=== PATIENT | female | born 1960 | race Two or more races ===

== ENCOUNTER 2017-04-28 05:08 | Inpatient (IN) | payer MEDICAID ==
[~2017-04-28] VITALS: Ht 160 cm; Wt 68.6 kg
[2017-04-28] MEDS ORDERED: SODIUM CHLORIDE 0.9% 500 ML IV ONE ×2 (05:35→05:45)
[2017-04-28] MEDS ORDERED: SODIUM CHLORIDE 0.9% 1,000 ML IV ONE ×4 (06:45→08:14)
[2017-04-28 07:17] LABS: CONDITION AutoValidated; DEFINITIVE SEE PRINTOUT; Hematocrit 36.2 % (36.0-46.0); Hemoglobin 11.6 g/dL (12.2-16.2); Mean Corpuscular Hemoglobin 24.4 pg (28.0-32.0); Mean Corpuscular Hgb Conc. 31.9 g/dL (32.0-36.0); Mean Corpuscular Volume 76.3 fL (80.0-100.0); Mean Platelet Volume 7.4 fL (7.4-10.4); Platelet Count (auto) 463 10^3/uL (140-450); SUSPECT SEE PRINTOUT
[2017-04-28 07:30] LABS: Partial Thromboplastin Time 31.3 sec (22.64-33.71)
[2017-04-28] MEDS ORDERED: PIPERACILLIN-TAZOB 3.375GM 100 ML IV ONE (07:30)
[2017-04-28 07:37] LABS: INR 2.27 (0.9-1.15); Prothrombin Time 24.9 sec (9.37-12.3)
[2017-04-28 07:38] LABS: Albumin 2.3 g/dL (3.4-5.0); BUN/Creatinine Ratio 11.2; Calcium 8.3 mg/dL (8.5-10.1); Metamyelocytes % 0; Myelocytes % 0; Promyelocytes % 0; Reactive Lymphocytes 0
[2017-04-28 07:41] LABS: Bilirubin, Total 0.3 mg/dL (0.2-1.0); Lactic Acid w/Reflex 4.7 mmol/L (0.4-2.0); Total Protein 9.5 g/dL (6.4-8.2)
[2017-04-28 07:43] LABS: Potassium 2.7 mmol/L (3.5-5.1)
[2017-04-28 07:52] LABS: Urine Bilirubin Negative (Negative); Urine Blood Negative /uL (Negative); Urine Color Yellow (Yellow); Urine Glucose Normal (Normal); Urine Ketone Negative (Negative); Urine Mucus FEW (None Seen); Urine Nitrite Negative (Negative); Urine RBC 1 /hpf (0 - 4); Urine Squamous Epithelial Cell FEW /hpf (<5); Urine Urobilinogen Normal (Negative); Urine pH 5.5 (5.0-8.0)
[2017-04-28 07:57] LABS: Anisocytosis Slight; Hypochromia Slight; Platelet Estimate Increased
[2017-04-28 08:08] LABS: REFLEX LACTIC ACID YES OR NO YES
[2017-04-28] MEDS ORDERED: metroNIDAZOLE 500MG/100ML 100 ML IV ONE (08:15)
[2017-04-28] MEDS ORDERED: AZITHROMYCIN 500MG/D5W 250ML 250 ML IV ONE (09:45)
[2017-04-28] MEDS: SODIUM CHLORIDE 0.9% 1,000 ML IV SCH ×2 (10:51→20:36)
[2017-04-28] MEDS ORDERED: ONDANSETRON HCL 4 MG/2 ML VIAL IV PRN (11:00)
[2017-04-28] MEDS ORDERED: DEXTROSE (50%) 50ML SYRG IV PRN (11:00)
[2017-04-28] MEDS ORDERED: MORPHINE SULF INJ 2 MG/ML SYRINGE 1ML IV PRN (11:00)
[2017-04-28] MEDS ORDERED: NITROGLYCERIN 0.4 MG SL TAB SL PRN (11:00)
[2017-04-28] MEDS ORDERED: cefTRIAXone 1GM/50ML D5W 50 ML IV ONE (11:00)
[2017-04-28] MEDS ORDERED: DOCUSATE SOD 100 MG CAP PO PRN (11:00)
[2017-04-28] MEDS ORDERED: VANCOMYCIN PER PHARMACY 0 MG IV SCH (11:00)
[2017-04-28] MEDS ORDERED: ACETAMINOPHEN 325 MG TAB PO PRN (11:00)
[2017-04-28] MEDS: FAMOTIDINE 20 MG TAB PO SCH ×2 (11:30→22:45)
[2017-04-28] MEDS: InsuLIN REG 1unit/0.01ml Soln (100units/ml) SC SCH ×3 (11:30→22:44)
[2017-04-28] MEDS: MULTIPLE VITAMIN TAB PO SCH (11:30)
[2017-04-28] MEDS: ACCU-CHEK COMFORT CURVE STRIP VI SCH ×3 (11:30→22:45)
[2017-04-28] MEDS ORDERED: POTASSIUM CHLORIDE 40 MEQ, LIDOCAINE 1% (LOCAL ANESTH.) 4 ML in SODIUM CHL 0.9% 250 ML IV ONE (11:30)
[2017-04-28] MEDS: VANCOMYCIN 1GM/250ML D5W 250 ML IV SCH (12:00)
[2017-04-28] MEDS: HYDROcodone-ACET 5/325MG TAB PO PRN (16:07)
[2017-04-28 16:50] VITALS: BP 115/63
[2017-04-28 20:00] VITALS: BP 94/54
[2017-04-28] MEDS ORDERED: TIOTCAP INH (20:28)
[2017-04-28] MEDS ORDERED: WARF2.5T39 PO (20:28)
[2017-04-28] MEDS ORDERED: PROM25TA5 PO (20:29)
[2017-04-28] MEDS ORDERED: OXY20CRT PO (20:32)
[2017-04-28] MEDS ORDERED: HYDR-531 PO (20:34)
[2017-04-28] MEDS ORDERED: LIDO5DIS21 TOP (20:34)
[2017-04-28] MEDS ORDERED: FAMO-12 PO (20:35)
[2017-04-28] MEDS ORDERED: FLUT250M2 INH (20:35)
[2017-04-28 20:37] LABS: BUN/Creatinine Ratio 15.4; Calcium 7.2 mg/dL (8.5-10.1); Potassium 3.2 mmol/L (3.5-5.1)
[2017-04-28 20:42] LABS: B-Type Natriuretic Peptide 847.48 pg/mL (0-100)
[2017-04-28 21:02] LABS: Temperature: 23.1 C (20.0-25.0)
[2017-04-28 21:04] LABS: REFLEX LACTIC ACID YES OR NO YES
[2017-04-29] VITALS: BP 115/67
[2017-04-29] MEDS: HYDROcodone-ACET 5/325MG TAB PO PRN ×3 (01:28→22:26)
[2017-04-29] MEDS: SODIUM CHLORIDE 0.9% 1,000 ML IV SCH (03:33)
[2017-04-29 04:00] VITALS: BP 98/63
[2017-04-29] MEDS: InsuLIN REG 1unit/0.01ml Soln (100units/ml) SC SCH ×4 (05:20→22:00)
[2017-04-29] MEDS: ACCU-CHEK COMFORT CURVE STRIP VI SCH ×4 (05:20→22:26)
[2017-04-29 05:49] LABS: CONDITION Y; DEFINITIVE SEE PRINTOUT; Hematocrit 29.9 % (36.0-46.0); Hemoglobin 9.7 g/dL (12.2-16.2); Mean Corpuscular Hemoglobin 24.5 pg (28.0-32.0); Mean Corpuscular Hgb Conc. 32.5 g/dL (32.0-36.0); Mean Corpuscular Volume 75.4 fL (80.0-100.0); Mean Platelet Volume 7.6 fL (7.4-10.4); Platelet Count (auto) 412 10^3/uL (140-450); SUSPECT SEE PRINTOUT
[2017-04-29 06:08] LABS: Red Cell Distribution Width 20.7 % (11.6-16.0)
[2017-04-29 06:11] LABS: Albumin 1.7 g/dL (3.4-5.0); BUN/Creatinine Ratio 18.5; Calcium 7.2 mg/dL (8.5-10.1); Myelocytes % 0; Potassium 3.5 mmol/L (3.5-5.1); Promyelocytes % 0; Reactive Lymphocytes 0
[2017-04-29 06:16] LABS: Bilirubin, Total 0.4 mg/dL (0.2-1.0); Total Protein 7.4 g/dL (6.4-8.2)
[2017-04-29 06:37] LABS: Anisocytosis Slight; Hypochromia Slight; Metamyelocytes % 9; Platelet Estimate Adequate
[2017-04-29 08:00] VITALS: BP 108/54
[2017-04-29] MEDS: cefTRIAXone 1GM/50ML D5W 50 ML IV SCH (08:57)
[2017-04-29] MEDS: FAMOTIDINE 20 MG TAB PO SCH ×2 (09:30→22:25)
[2017-04-29] MEDS: MULTIPLE VITAMIN TAB PO SCH (09:30)
[2017-04-29 12:00] VITALS: BP 106/63
[2017-04-29] MEDS: VANCOMYCIN 1GM/250ML D5W 250 ML IV SCH (12:18)
[2017-04-29] MEDS: D5W/SOD CHLO 0.9% 1,000 ML IV SCH ×2 (12:54→22:45)
[2017-04-29 15:49] VITALS: BP 121/72
[2017-04-29 20:00] VITALS: BP 125/90
[2017-04-29] MEDS: TEMAZEPAM 15 MG CAP PO PRN (22:25)
[2017-04-30] MEDS: InsuLIN REG 1unit/0.01ml Soln (100units/ml) SC SCH ×4 (06:26→22:00)
[2017-04-30 06:30] LABS: CONDITION Y; DEFINITIVE SEE PRINTOUT; Hematocrit 26.6 % (36.0-46.0); Hemoglobin 8.5 g/dL (12.2-16.2); Mean Corpuscular Hemoglobin 24.5 pg (28.0-32.0); Mean Corpuscular Volume 76.4 fL (80.0-100.0); Mean Platelet Volume 7.6 fL (7.4-10.4); Platelet Count (auto) 343 10^3/uL (140-450); SUSPECT SEE PRINTOUT; White Blood Cell 21.8 10^3/uL (4.4-10.8)
[2017-04-30 06:44] LABS: Albumin 1.4 g/dL (3.4-5.0); Potassium 3.6 mmol/L (3.5-5.1)
[2017-04-30 06:47] LABS: Bilirubin, Total 0.2 mg/dL (0.2-1.0); Red Cell Distribution Width 20.6 % (11.6-16.0)
[2017-04-30 06:48] LABS: Metamyelocytes % 0; Myelocytes % 0; Promyelocytes % 0; Reactive Lymphocytes 0
[2017-04-30 06:51] LABS: BUN/Creatinine Ratio 23.3
[2017-04-30 06:53] LABS: Calcium 5.6 mg/dL (8.5-10.1)
[2017-04-30 06:59] LABS: Total Protein 6.2 g/dL (6.4-8.2)
[2017-04-30] MEDS: ACCU-CHEK COMFORT CURVE STRIP VI SCH ×4 (07:00→21:48)
[2017-04-30 08:00] VITALS: BP 127/87
[2017-04-30] MEDS: D5W/SOD CHLO 0.9% 1,000 ML IV SCH ×2 (08:45→12:21)
[2017-04-30 09:16] LABS: Anisocytosis Slight; Hypochromia Slight; Platelet Estimate Adequate
[2017-04-30 09:23] LABS: White Blood Cell 35.6 10^3/uL (4.4-10.8)
[2017-04-30] MEDS: FAMOTIDINE 20 MG TAB PO SCH ×2 (10:58→22:03)
[2017-04-30] MEDS: MULTIPLE VITAMIN TAB PO SCH (11:00)
[2017-04-30] MEDS: cefTRIAXone 1GM/50ML D5W 50 ML IV SCH (11:00)
[2017-04-30] MEDS: MAGNESIUM SULFATE 1GM/100ML 100 ML IV SCH (11:00)
[2017-04-30 12:00] VITALS: BP 137/97
[2017-04-30] MEDS: VANCOMYCIN 1GM/250ML D5W 250 ML IV SCH (12:21)
[2017-04-30] MEDS ORDERED: MAGNESIUM SULFATE 1GM/100ML 100 ML IV ONE (14:01)
[2017-04-30 16:00] VITALS: BP 140/94
[2017-04-30 19:46] VITALS: BP 129/76
[2017-05-01] VITALS: BP 138/72
[2017-05-01 04:00] VITALS: BP 134/83
[2017-05-01] MEDS: D5W/SOD CHLO 0.9% 1,000 ML IV SCH ×2 (05:03→20:00)
[2017-05-01 05:27] LABS: Basophils # (auto) 0.1 uL; Basophils % (auto) 0.5 % (0.0-2.0); CONDITION Y; DEFINITIVE SEE PRINTOUT; Eosinophils # (auto) 0.2 uL; Eosinophils % (auto) 1.8 % (0.0-7.0); Hematocrit 29.4 % (36.0-46.0); Hemoglobin 9.3 g/dL (12.2-16.2); Lymphocytes # (auto) 1.7 uL; Lymphocytes % (auto) 12.8 % (10.0-50.0); Mean Corpuscular Hemoglobin 23.9 pg (28.0-32.0); Mean Corpuscular Hgb Conc. 31.6 g/dL (32.0-36.0); Mean Corpuscular Volume 75.6 fL (80.0-100.0); Mean Platelet Volume 7.7 fL (7.4-10.4); Monocytes # (auto) 0.3 uL; Monocytes % (auto) 2.2 % (0.0-12.0); Neutrophils # (auto) 10.7 uL; Neutrophils % (auto) 82.7 % (37.0-80.0); Platelet Count (auto) 372 10^3/uL (140-450)
[2017-05-01] MEDS: ACCU-CHEK COMFORT CURVE STRIP VI SCH ×4 (05:27→20:55)
[2017-05-01 05:42] LABS: Albumin 1.7 g/dL (3.4-5.0); BUN/Creatinine Ratio 17.3; Bilirubin, Total 0.2 mg/dL (0.2-1.0); Calcium 7.6 mg/dL (8.5-10.1); Magnesium 1.7 mg/dL (1.6-2.6); Total Protein 7.4 g/dL (6.4-8.2)
[2017-05-01 05:44] LABS: Potassium 2.9 mmol/L (3.5-5.1)
[2017-05-01 05:54] LABS: Anisocytosis Slight; Hypochromia Slight; Platelet Estimate Adequate
[2017-05-01] MEDS: InsuLIN REG 1unit/0.01ml Soln (100units/ml) SC SCH ×4 (06:04→21:52)
[2017-05-01] MEDS: POTASSIUM CHL 20MEQ/100ML 100 ML IV SCH ×4 (06:23→14:30)
[2017-05-01] MEDS: cefTRIAXone 1GM/50ML D5W 50 ML IV SCH (09:22)
[2017-05-01] MEDS: FAMOTIDINE 20 MG TAB PO SCH ×2 (10:46→20:49)
[2017-05-01] MEDS: AZITHROMYCIN 500MG/D5W 250ML 250 ML IV SCH (10:46)
[2017-05-01 12:00] VITALS: BP 147/93
[2017-05-01] MEDS: MULTIPLE VITAMIN TAB PO SCH (15:00)
[2017-05-01 16:00] VITALS: BP 146/92
[2017-05-01 20:00] VITALS: BP 151/97
[2017-05-01] MEDS: TEMAZEPAM 15 MG CAP PO PRN (20:49)
[2017-05-01] MEDS: HYDROcodone-ACET 5/325MG TAB PO PRN (20:51)
[2017-05-01 23:47] VITALS: BP 149/94
[2017-05-02] MEDS: D5W/SOD CHLO 0.9% 1,000 ML IV SCH ×3 (00:45→19:00)
[2017-05-02 03:49] VITALS: BP 136/82
[2017-05-02] MEDS: InsuLIN REG 1unit/0.01ml Soln (100units/ml) SC SCH ×4 (05:37→21:55)
[2017-05-02] MEDS: ACCU-CHEK COMFORT CURVE STRIP VI SCH ×4 (05:38→21:51)
[2017-05-02 06:20] LABS: Basophils # (auto) 0 uL; Basophils % (auto) 0.2 % (0.0-2.0); CONDITION Y; DEFINITIVE SEE PRINTOUT; Eosinophils # (auto) 0.3 uL; Eosinophils % (auto) 2.6 % (0.0-7.0); Hematocrit 32.1 % (36.0-46.0); Hemoglobin 10.4 g/dL (12.2-16.2); Lymphocytes # (auto) 1.6 uL; Lymphocytes % (auto) 15.4 % (10.0-50.0); Mean Corpuscular Hemoglobin 24.3 pg (28.0-32.0); Mean Corpuscular Hgb Conc. 32.3 g/dL (32.0-36.0); Mean Corpuscular Volume 75.2 fL (80.0-100.0); Mean Platelet Volume 7.3 fL (7.4-10.4); Monocytes # (auto) 0.2 uL; Monocytes % (auto) 1.5 % (0.0-12.0); Neutrophils # (auto) 8.6 uL; Neutrophils % (auto) 80.3 % (37.0-80.0); Platelet Count (auto) 306 10^3/uL (140-450); SUSPECT SEE PRINTOUT; White Blood Cell 10.7 10^3/uL (4.4-10.8)
[2017-05-02 06:36] LABS: Albumin 1.8 g/dL (3.4-5.0); Calcium 7.7 mg/dL (8.5-10.1); Potassium 3.6 mmol/L (3.5-5.1)
[2017-05-02 06:43] LABS: BUN/Creatinine Ratio 11.3; Bilirubin, Total 0.2 mg/dL (0.2-1.0); Total Protein 8.1 g/dL (6.4-8.2)
[2017-05-02 06:48] LABS: Red Cell Distribution Width 20.6 % (11.6-16.0)
[2017-05-02 06:49] LABS: Anisocytosis Slight; Hypochromia Slight; Platelet Estimate Adequate
[2017-05-02 08:00] VITALS: BP 140/89
[2017-05-02] MEDS: cefTRIAXone 1GM/50ML D5W 50 ML IV SCH (09:00)
[2017-05-02] MEDS: AZITHROMYCIN 500MG/D5W 250ML 250 ML IV SCH (10:30)
[2017-05-02] MEDS: FAMOTIDINE 20 MG TAB PO SCH ×2 (10:30→21:51)
[2017-05-02] MEDS: MULTIPLE VITAMIN TAB PO SCH (10:30)
[2017-05-02 11:51] VITALS: BP 130/89
[2017-05-02] MEDS: HYDROcodone-ACET 5/325MG TAB PO PRN (15:26)
[2017-05-02 16:00] VITALS: BP 141/84
[2017-05-02 22:00] VITALS: BP 133/75
[2017-05-02] MEDS: MORPHINE SULF INJ 2 MG/ML SYRINGE 1ML IV PRN (22:43)
[2017-05-03 05:00] VITALS: BP 122/86
[2017-05-03] MEDS: MORPHINE SULF INJ 2 MG/ML SYRINGE 1ML IV PRN (06:01)
[2017-05-03] MEDS: InsuLIN REG 1unit/0.01ml Soln (100units/ml) SC SCH ×4 (06:36→22:01)
[2017-05-03] MEDS: ACCU-CHEK COMFORT CURVE STRIP VI SCH ×4 (06:36→21:43)
[2017-05-03] MEDS: D5W/SOD CHLO 0.9% 1,000 ML IV SCH ×2 (06:45→16:45)
[2017-05-03] MEDS: cefTRIAXone 1GM/50ML D5W 50 ML IV SCH (08:27)
[2017-05-03] MEDS: MULTIPLE VITAMIN TAB PO SCH (08:27)
[2017-05-03] MEDS: FAMOTIDINE 20 MG TAB PO SCH ×2 (08:27→21:43)
[2017-05-03 09:00] VITALS: BP 113/71
[2017-05-03] MEDS: AZITHROMYCIN 500MG/D5W 250ML 250 ML IV SCH (09:53)
[2017-05-03 13:00] VITALS: BP 128/75
[2017-05-03 17:00] VITALS: BP 112/76
[2017-05-03 21:14] VITALS: BP 114/71
[2017-05-03] MEDS: HYDROcodone-ACET 5/325MG TAB PO PRN (22:02)
[2017-05-04] MEDS: D5W/SOD CHLO 0.9% 1,000 ML IV SCH ×3 (02:45→23:37)
[2017-05-04 05:02] VITALS: BP 107/74
[2017-05-04] MEDS: HYDROcodone-ACET 5/325MG TAB PO PRN ×2 (05:57→20:45)
[2017-05-04] MEDS: ACCU-CHEK COMFORT CURVE STRIP VI SCH ×4 (05:57→20:45)
[2017-05-04] MEDS: InsuLIN REG 1unit/0.01ml Soln (100units/ml) SC SCH ×4 (06:44→22:00)
[2017-05-04 07:19] LABS: Basophils # (auto) 0 uL; Basophils % (auto) 0.5 % (0.0-2.0); CONDITION Y; DEFINITIVE SEE PRINTOUT; Eosinophils # (auto) 0.6 uL; Eosinophils % (auto) 7.7 % (0.0-7.0); Hematocrit 32.6 % (36.0-46.0); Hemoglobin 10.6 g/dL (12.2-16.2); Lymphocytes # (auto) 1.7 uL; Lymphocytes % (auto) 20.2 % (10.0-50.0); Mean Corpuscular Hemoglobin 24.3 pg (28.0-32.0); Mean Corpuscular Hgb Conc. 32.5 g/dL (32.0-36.0); Mean Corpuscular Volume 74.7 fL (80.0-100.0); Mean Platelet Volume 7.2 fL (7.4-10.4); Monocytes # (auto) 1.2 uL; Monocytes % (auto) 14.2 % (0.0-12.0); Neutrophils # (auto) 4.9 uL; Neutrophils % (auto) 57.4 % (37.0-80.0); Platelet Count (auto) 389 10^3/uL (140-450); White Blood Cell 8.5 10^3/uL (4.4-10.8)
[2017-05-04 07:23] LABS: Red Cell Distribution Width 20.2 % (11.6-16.0)
[2017-05-04 07:27] LABS: Albumin 2.1 g/dL (3.4-5.0); Calcium 8.3 mg/dL (8.5-10.1); Potassium 3.8 mmol/L (3.5-5.1)
[2017-05-04 07:30] LABS: Bilirubin, Total 0.2 mg/dL (0.2-1.0); Total Protein 9.5 g/dL (6.4-8.2)
[2017-05-04] MEDS: cefTRIAXone 1GM/50ML D5W 50 ML IV SCH (08:18)
[2017-05-04] MEDS: AZITHROMYCIN 500MG/D5W 250ML 250 ML IV SCH (10:04)
[2017-05-04] MEDS: FAMOTIDINE 20 MG TAB PO SCH ×2 (10:04→20:44)
[2017-05-04] MEDS: MULTIPLE VITAMIN TAB PO SCH (10:04)
[2017-05-04 10:09] VITALS: BP 131/78
[2017-05-04 11:19] LABS: Anisocytosis Slight
[2017-05-04 11:20] LABS: Hypochromia Slight; Microcytosis Moderate; Platelet Estimate Adequate
[2017-05-04 12:23] VITALS: BP 113/74
[2017-05-04] MEDS: PROMETHAZINE W/CODEINE 5 ML ORAL SYRUP PO PRN ×2 (12:39→20:44)
[2017-05-04 21:45] VITALS: BP 133/80
[2017-05-05 04:44] VITALS: BP 124/78
[2017-05-05] MEDS: ACCU-CHEK COMFORT CURVE STRIP VI SCH ×2 (06:20→11:32)
[2017-05-05] MEDS: HYDROcodone-ACET 5/325MG TAB PO PRN (06:20)
[2017-05-05] MEDS: InsuLIN REG 1unit/0.01ml Soln (100units/ml) SC SCH ×2 (07:00→11:32)
[2017-05-05] MEDS: cefTRIAXone 1GM/50ML D5W 50 ML IV SCH (08:54)
[2017-05-05] MEDS: D5W/SOD CHLO 0.9% 1,000 ML IV SCH (08:54)
[2017-05-05 09:03] VITALS: BP 105/67
[2017-05-05] MEDS: MULTIPLE VITAMIN TAB PO SCH (10:12)
[2017-05-05] MEDS: AZITHROMYCIN 500MG/D5W 250ML 250 ML IV SCH (10:12)
[2017-05-05] MEDS: FAMOTIDINE 20 MG TAB PO SCH (10:12)
[2017-05-05 10:57] VITALS: BP 86/64
[2017-05-05] MEDS: PROMETHAZINE W/CODEINE 5 ML ORAL SYRUP PO PRN (12:32)
== END 2017-05-05 14:20 | disposition home or self-care (01) | DRG 720 ==
LOC: ER 05:08 → EDBD 05:08 → TELE 05:09 → DOU IN ICU 16:54 → TELE-EAST 05-02 19:57 → EAST 05-03 16:30
PROVIDERS: ADMIT Internal Medicine; ATTEND Internal Medicine
DX: A41.9 Sepsis, unspecified organism (principal); J69.0 Pneumonitis due to inhalation of food and vomit; E43 Unspecified severe protein-calorie malnutrition; G92 Toxic encephalopathy; J13 Pneumonia due to Streptococcus pneumoniae; D68.9 Coagulation defect, unspecified; E11.21 Type 2 diabetes mellitus with diabetic nephropathy; D63.8 Anemia in other chronic diseases classified elsewhere; E83.51 Hypocalcemia; E87.6 Hypokalemia; F15.10 Other stimulant abuse, uncomplicated; E86.0 Dehydration; J44.9 Chronic obstructive pulmonary disease, unspecified; N18.3 Chronic kidney disease, stage 3 (moderate); E78.5 Hyperlipidemia, unspecified; E11.22 Type 2 diabetes mellitus with diabetic chronic kidney disease; J44.0 Chronic obstructive pulmonary disease with (acute) lower respiratory infection; Z82.49 Family history of ischemic heart disease and other diseases of the circulatory system; Z83.3 Family history of diabetes mellitus; Z90.49 Acquired absence of other specified parts of digestive tract; Z90.12 Acquired absence of left breast and nipple; Z88.8 Allergy status to other drugs, medicaments and biological substances; Z82.61 Family history of arthritis; Z71.9 Counseling, unspecified; Z68.26 Body mass index [BMI] 26.0-26.9, adult
CPT/HCPCS: 36415; 36556; 51702; 70450; 71010; 71020; 71250; 74176; 80048; 80053; 80307; 81001; 82962; 83036; 83540; 83605; 83735; 83880; 84443; 84484; 85007; 85025; 85027; 85610; 85730; 87040; 87070; 87077; 87081; 87186; 87205; 87493; 93005; 93306; 96361; 96365; 96366; 96368; 96375; 99291; J0696; J1815; J2001; J2543; J3480; J3490; J7042

== ENCOUNTER 2017-12-07 15:52 | Emergency (ER) | payer MEDICAID ==
[~2017-12-07] VITALS: Ht 160 cm; Wt 54.4 kg
[~2017-12-07 15:52] MED LIST: FAMO-12 PO; FLUT250M2 INH; HYDR-531 PO; LIDO5DIS21 TOP; OXY20CRT PO; PROM25TA5 PO; TIOTCAP INH; WARF2.5T39 PO
[2017-12-07 15:56] VITALS: BP 147/84
[2017-12-07 17:08] LABS: Basophils # (auto) 0.1 uL; Eosinophils # (auto) 0.1 uL; Hemoglobin 11.9 g/dL (12.2-16.2); White Blood Cell 10.2 10^3/uL (4.4-10.8)
[2017-12-07 17:09] LABS: Basophils % (auto) 0.8 % (0.0-2.0); Eosinophils % (auto) 0.7 % (0.0-7.0); Lymphocytes # (auto) 2.1 uL; Lymphocytes % (auto) 20.3 % (10.0-50.0); Mean Corpuscular Hgb Conc. 32.2 g/dL (32.0-36.0); Mean Corpuscular Volume 77.6 fL (80.0-100.0); Monocytes # (auto) 1.6 uL; Monocytes % (auto) 15.3 % (0.0-12.0); Neutrophils # (auto) 6.4 uL; Neutrophils % (auto) 62.9 % (37.0-80.0); Nucleated Red Blood Cells % 0.1 %; Platelet Count (auto) 489 10^3/uL (140-450); Red Blood Cells 4.77 10^6/uL (4.0-5.20)
[2017-12-07 17:14] LABS: Alanine Aminotransferase 10 U/L (13-56); Albumin 2.6 g/dL (3.4-5.0); Alkaline Phosphatase 87 U/L (45-117); Anion Gap 8 (5-15); Aspartate Aminotransferase 16 U/L (15-37); BUN/Creatinine Ratio 13.3; Bilirubin, Total 0.3 mg/dL (0.2-1.0); Blood Urea Nitrogen 15 mg/dL (7-18); Calcium 7.8 mg/dL (8.5-10.1); Carbon Dioxide 21 mmol/L (21-32); Chloride 101 mmol/L (98-107); GFR African American 64 mL/min; GFR Non-African American 53 mL/min; Glucose 86 mg/dL (74-106); Magnesium 2.1 mg/dL (1.6-2.6); Potassium 3.5 mmol/L (3.5-5.1); Sodium 130 mmol/L (136-145); Total Protein 11.2 g/dL (6.4-8.2)
[2017-12-07 17:15] LABS: Red Cell Distribution Width 20.7 % (11.8-14.3)
[2017-12-09] MEDS ORDERED: WARF5TAB71 PO (05:07)
[2017-12-12] MEDS ORDERED: SACC250C PO (13:07)
[2017-12-12] MEDS ORDERED: WARF5TAB71 PO (13:07)
[2017-12-12] MEDS ORDERED: LEVO750T2 PO (13:07)
== END 2017-12-08 02:15 | disposition left against medical advice (07) ==
LOC: ER 15:52
DX: R06.02 Shortness of breath (principal); Z53.21 Procedure and treatment not carried out due to patient leaving prior to being seen by health care provider
CPT/HCPCS: 36415; 71046; 80053; 83605; 83735; 84484; 85025; 87040; 93005

== ENCOUNTER 2017-12-08 13:01 | Inpatient (IN) | payer MEDICAID ==
[~2017-12-08] VITALS: Ht 160 cm; Wt 69.2 kg
[2017-12-08 05:00] VITALS: BP 118/56
[2017-12-08 13:43] LABS: Basophils # (auto) 0.1 uL; Monocytes # (auto) 1.9 uL; Monocytes % (auto) 10.1 % (0.0-12.0); White Blood Cell 18.4 10^3/uL (4.4-10.8)
[2017-12-08 13:46] LABS: Basophils % (auto) 0.5 % (0.0-2.0); Eosinophils # (auto) 0.1 uL; Eosinophils % (auto) 0.3 % (0.0-7.0); Hematocrit 38.6 % (36.0-46.0); Hemoglobin 12.5 g/dL (12.2-16.2); Lymphocytes # (auto) 1.2 uL; Lymphocytes % (auto) 6.4 % (10.0-50.0); Mean Corpuscular Hgb Conc. 32.4 g/dL (32.0-36.0); Mean Corpuscular Volume 77.2 fL (80.0-100.0); Neutrophils # (auto) 15.2 uL; Neutrophils % (auto) 82.7 % (37.0-80.0); Platelet Count (auto) 479 10^3/uL (140-450); Red Blood Cells 4.99 10^6/uL (4.0-5.20)
[2017-12-08 13:51] LABS: Red Cell Distribution Width 20.2 % (11.8-14.3)
[2017-12-08 14:10] LABS: Alanine Aminotransferase 13 U/L (13-56); Albumin 2.5 g/dL (3.4-5.0); Alkaline Phosphatase 86 U/L (45-117); Anion Gap 7 (5-15); Aspartate Aminotransferase 14 U/L (15-37); BUN/Creatinine Ratio 12.8; Bilirubin, Total 0.5 mg/dL (0.2-1.0); Blood Urea Nitrogen 15 mg/dL (7-18); Carbon Dioxide 21 mmol/L (21-32); Chloride 101 mmol/L (98-107); GFR African American 61 mL/min; GFR Non-African American 50 mL/min; Glucose 109 mg/dL (74-106); Potassium 3.8 mmol/L (3.5-5.1); Sodium 129 mmol/L (136-145); Total Protein 11.3 g/dL (6.4-8.2)
[2017-12-08] MEDS ORDERED: AZITHROMYCIN 500MG/ 250ML 250 ML IV ONE (14:30)
[2017-12-08] MEDS ORDERED: ONDANSETRON HCL 4 MG/2 ML VIAL IV PRN (14:30)
[2017-12-08] MEDS ORDERED: MORPHINE SULF INJ 2 MG/ML SYRINGE 1ML IV PRN (14:30)
[2017-12-08] MEDS ORDERED: MORPHINE SULFATE 10 MG/ML INJ 1ML SDV IV PRN (14:30)
[2017-12-08] MEDS ORDERED: NITROGLYCERIN 0.4 MG SL TAB SL PRN (14:30)
[2017-12-08] MEDS ORDERED: cefTRIAXone 1GM/10ml IVPUSH 10 ML IV ONE (14:30)
[2017-12-08] MEDS ORDERED: cloNIDine HCL 0.1 MG TAB PO PRN (14:45)
[2017-12-08] MEDS ORDERED: SODIUM CHLORIDE 0.9% 1,000 ML IV ONE (15:00)
[2017-12-08 15:38] LABS: INR 1.05 (0.9-1.15); Partial Thromboplastin Time 29.9 sec (22.64-33.71); Prothrombin Time 11.5 sec (9.37-12.3)
[2017-12-08 15:48] VITALS: BP 121/75
[2017-12-08] MEDS ORDERED: WARFARIN SODIUM 10 MG TAB PO ONE (17:00)
[2017-12-08] MEDS ORDERED: WARFARIN SODIUM 5 MG TAB PO ONE (17:15)
[2017-12-08] MEDS: BOOST PLUS 8 ounce PO SCH (18:17)
[2017-12-08] MEDS: ALBUTEROL SULF 2.5 MG/0.5ML(0.5%) NEB SOLN NEB SCH ×2 (18:30→22:15)
[2017-12-08] MEDS: IPRATROPIUM BROM 0.5 MG/2.5ML INH SOL NEB SCH ×2 (18:30→22:15)
[2017-12-08 19:47] LABS: Lactic Acid w/Reflex 2.2 mmol/L (0.4-2.0)
[2017-12-08] MEDS: HYDROcodone-ACET 5/325MG TAB PO PRN (20:03)
[2017-12-08] MEDS: SODIUM CHLOR 0.9% PF (SALINE LOCK) 10ML VIAL IV SCH (22:10)
[2017-12-08] MEDS: FAMOTIDINE 20 MG TAB PO SCH (22:10)
[2017-12-09] MEDS: ALBUTEROL SULF 2.5 MG/0.5ML(0.5%) NEB SOLN NEB SCH ×6 (02:20→22:22)
[2017-12-09] MEDS: IPRATROPIUM BROM 0.5 MG/2.5ML INH SOL NEB SCH ×6 (02:20→22:22)
[2017-12-09 05:00] VITALS: BP 118/56
[2017-12-09] MEDS ORDERED: WARF5TAB71 PO (05:07)
[2017-12-09 06:27] LABS: Eosinophils # (auto) 0.1 uL; Neutrophils # (auto) 13.8 uL; Nucleated Red Blood Cells % 0.1 %
[2017-12-09 06:30] LABS: Basophils # (auto) 0.1 uL; Basophils % (auto) 0.3 % (0.0-2.0); Eosinophils % (auto) 0.5 % (0.0-7.0); Hematocrit 34.2 % (36.0-46.0); Hemoglobin 11.1 g/dL (12.2-16.2); Lymphocytes # (auto) 2.5 uL; Lymphocytes % (auto) 13.9 % (10.0-50.0); Mean Corpuscular Hemoglobin 25.1 pg (28.0-32.0); Mean Corpuscular Hgb Conc. 32.3 g/dL (32.0-36.0); Mean Corpuscular Volume 77.6 fL (80.0-100.0); Monocytes # (auto) 1.8 uL; Monocytes % (auto) 9.7 % (0.0-12.0); Neutrophils % (auto) 75.6 % (37.0-80.0); Platelet Count (auto) 429 10^3/uL (140-450); Red Blood Cells 4.41 10^6/uL (4.0-5.20); White Blood Cell 18.2 10^3/uL (4.4-10.8)
[2017-12-09] MEDS: DOCUSATE SOD 100 MG CAP PO PRN ×2 (06:31→22:58)
[2017-12-09] MEDS: SODIUM CHLOR 0.9% PF (SALINE LOCK) 10ML VIAL IV SCH ×3 (06:31→22:57)
[2017-12-09] MEDS: HYDROcodone-ACET 5/325MG TAB PO PRN ×3 (06:31→22:58)
[2017-12-09 06:40] LABS: INR 1.21 (0.9-1.15); Prothrombin Time 13.2 sec (9.37-12.3)
[2017-12-09 07:08] LABS: Red Cell Distribution Width 20.3 % (11.8-14.3)
[2017-12-09 07:09] LABS: Albumin 2.1 g/dL (3.4-5.0); BUN/Creatinine Ratio 13.4; Bilirubin, Total 0.5 mg/dL (0.2-1.0); Calcium 7.6 mg/dL (8.5-10.1); Potassium 3.5 mmol/L (3.5-5.1); Total Protein 9.6 g/dL (6.4-8.2)
[2017-12-09 08:00] VITALS: BP 112/59
[2017-12-09] MEDS: BOOST PLUS 8 ounce PO SCH ×3 (08:11→17:21)
[2017-12-09 08:35] LABS: INR 1.24 (0.9-1.15); Partial Thromboplastin Time 34.6 sec (22.64-33.71); Prothrombin Time 13.5 sec (9.37-12.3)
[2017-12-09 09:00] VITALS: BP 112/59
[2017-12-09] MEDS: cefTRIAXone 1GM/10ml IVPUSH 10 ML IV SCH (10:09)
[2017-12-09] MEDS: FAMOTIDINE 20 MG TAB PO SCH ×2 (10:11→22:58)
[2017-12-09] MEDS: MULTIPLE VITAMIN TAB PO SCH (10:11)
[2017-12-09] MEDS: AZITHROMYCIN 500MG/ 250ML 250 ML IV SCH (10:13)
[2017-12-09 13:00] VITALS: BP 108/71
[2017-12-09] MEDS: methylPREDNISolone SOD SUCC 40 MG/ML VL IV SCH ×2 (15:11→22:58)
[2017-12-09] MEDS: SODIUM CHLORIDE 0.9% 1,000 ML IV SCH (15:12)
[2017-12-09 17:00] VITALS: BP 109/70
[2017-12-09] MEDS ORDERED: WARFARIN SODIUM 10 MG TAB PO ONE (17:00)
[2017-12-09 22:11] VITALS: BP 130/69
[2017-12-09] MEDS: guaiFENesin-DM 100/10mg/5ml SYR PO PRN (22:59)
[2017-12-10] MEDS: ALBUTEROL SULF 2.5 MG/0.5ML(0.5%) NEB SOLN NEB SCH ×7 (02:27→22:47)
[2017-12-10] MEDS: IPRATROPIUM BROM 0.5 MG/2.5ML INH SOL NEB SCH ×7 (02:27→22:47)
[2017-12-10 04:58] VITALS: BP 123/71
[2017-12-10 05:22] LABS: Basophils # (auto) 0 uL; Basophils % (auto) 0.1 % (0.0-2.0); Eosinophils # (auto) 0 uL; Hemoglobin 10.8 g/dL (12.2-16.2); Lymphocytes # (auto) 0.8 uL; Lymphocytes % (auto) 5.9 % (10.0-50.0); Mean Corpuscular Volume 77.8 fL (80.0-100.0); Monocytes # (auto) 0.2 uL
[2017-12-10 05:24] LABS: Hematocrit 33.6 % (36.0-46.0); Mean Corpuscular Hgb Conc. 32.1 g/dL (32.0-36.0); Monocytes % (auto) 1.2 % (0.0-12.0); Neutrophils # (auto) 11.9 uL; Neutrophils % (auto) 92.8 % (37.0-80.0); Platelet Count (auto) 437 10^3/uL (140-450); Red Blood Cells 4.32 10^6/uL (4.0-5.20); White Blood Cell 12.8 10^3/uL (4.4-10.8)
[2017-12-10 05:38] LABS: INR 1.65 (0.9-1.15); Prothrombin Time 18.1 sec (9.37-12.3)
[2017-12-10] MEDS: guaiFENesin-DM 100/10mg/5ml SYR PO PRN (06:06)
[2017-12-10] MEDS: SODIUM CHLORIDE 0.9% 1,000 ML IV SCH ×2 (06:07→17:25)
[2017-12-10] MEDS: HYDROcodone-ACET 5/325MG TAB PO PRN ×3 (06:07→21:08)
[2017-12-10] MEDS: SODIUM CHLOR 0.9% PF (SALINE LOCK) 10ML VIAL IV SCH ×3 (06:07→22:00)
[2017-12-10 06:16] LABS: Lactic Acid w/Reflex 2.7 mmol/L (0.4-2.0)
[2017-12-10 06:20] LABS: BUN/Creatinine Ratio 19.6; Calcium 8.1 mg/dL (8.5-10.1); Magnesium 2.4 mg/dL (1.6-2.6); Potassium 3.9 mmol/L (3.5-5.1)
[2017-12-10 08:00] VITALS: BP 115/63
[2017-12-10] MEDS: BOOST PLUS 8 ounce PO SCH ×3 (08:00→18:58)
[2017-12-10 09:00] VITALS: BP 115/63
[2017-12-10] MEDS ORDERED: methylPREDNISolone SOD SUCC 40 MG/ML VL IV SCH (10:00)
[2017-12-10] MEDS: FAMOTIDINE 20 MG TAB PO SCH ×2 (10:13→22:25)
[2017-12-10] MEDS: MULTIPLE VITAMIN TAB PO SCH (10:13)
[2017-12-10] MEDS: cefTRIAXone 1GM/10ml IVPUSH 10 ML IV SCH (10:14)
[2017-12-10] MEDS: AZITHROMYCIN 500MG/ 250ML 250 ML IV SCH (10:36)
[2017-12-10 11:15] LABS: Urine Bacteria NONE SEEN /hpf (None Seen); Urine Blood Negative /uL (Negative); Urine WBC <1 /hpf (0 - 5)
[2017-12-10 11:17] LABS: Alcohol, Urine < 3.0 mg/dL (0-5); Amphetamine Screen, Urine POSITIVE (NEGATIVE); Barbiturate Scree,Urine NEGATIVE (NEGATIVE); Benzodiazephine Screen, Urine NEGATIVE (NEGATIVE); Cannabinoid Screen, Urine NEGATIVE (NEGATIVE); Cocaine Screen, Urine NEGATIVE (NEGATIVE); Opiate Scree,Urine POSITIVE (NEGATIVE); Phencyclidine Screen, Urine NEGATIVE (NEGATIVE)
[2017-12-10 13:00] VITALS: BP 130/80
[2017-12-10] MEDS ORDERED: LEVOFLOXACIN 250 MG TAB PO ONE (14:15)
[2017-12-10 16:43] VITALS: BP 134/91
[2017-12-10] MEDS ORDERED: WARFARIN SODIUM 5 MG TAB PO ONE (17:00)
[2017-12-10 21:44] VITALS: BP 130/79
[2017-12-10 22:21] LABS: % Iron Saturation 6.5 % (15-50)
[2017-12-10] MEDS: TEMAZEPAM 15 MG CAP PO PRN (22:26)
[2017-12-11 05:00] VITALS: BP 134/60
[2017-12-11] MEDS: SODIUM CHLOR 0.9% PF (SALINE LOCK) 10ML VIAL IV SCH ×3 (05:32→21:28)
[2017-12-11 05:45] LABS: Basophils # (auto) 0 uL; Basophils % (auto) 0.1 % (0.0-2.0); Eosinophils # (auto) 0 uL; Hemoglobin 10.4 g/dL (12.2-16.2); Lymphocytes % (auto) 9.3 % (10.0-50.0)
[2017-12-11 05:48] LABS: Hematocrit 32.9 % (36.0-46.0); Lymphocytes # (auto) 1.7 uL; Mean Corpuscular Hemoglobin 24.6 pg (28.0-32.0); Mean Corpuscular Hgb Conc. 31.6 g/dL (32.0-36.0); Mean Corpuscular Volume 77.7 fL (80.0-100.0); Monocytes # (auto) 0.9 uL; Neutrophils % (auto) 85.6 % (37.0-80.0); Platelet Count (auto) 527 10^3/uL (140-450); Red Blood Cells 4.23 10^6/uL (4.0-5.20); Red Cell Distribution Width 19.9 % (11.8-14.3); White Blood Cell 18.7 10^3/uL (4.4-10.8)
[2017-12-11 05:59] LABS: INR 3.24 (0.9-1.15); Partial Thromboplastin Time 37.1 sec (22.64-33.71); Prothrombin Time 35.7 sec (9.37-12.3)
[2017-12-11 06:17] LABS: BUN/Creatinine Ratio 29.4; Calcium 8.4 mg/dL (8.5-10.1); Potassium 4.3 mmol/L (3.5-5.1)
[2017-12-11] MEDS: SODIUM CHLORIDE 0.9% 1,000 ML IV SCH ×2 (06:31→20:05)
[2017-12-11] MEDS: IPRATROPIUM BROM 0.5 MG/2.5ML INH SOL NEB SCH ×5 (07:09→22:13)
[2017-12-11] MEDS: ALBUTEROL SULF 2.5 MG/0.5ML(0.5%) NEB SOLN NEB SCH ×5 (07:09→22:13)
[2017-12-11 08:00] VITALS: BP 114/60
[2017-12-11 08:55] VITALS: BP 114/66
[2017-12-11] MEDS: methylPREDNISolone SOD SUCC 40 MG/ML VL IV SCH ×2 (10:00→10:37)
[2017-12-11] MEDS: BOOST PLUS 8 ounce PO SCH ×3 (10:37→18:19)
[2017-12-11] MEDS: FAMOTIDINE 20 MG TAB PO SCH ×2 (10:38→21:28)
[2017-12-11] MEDS: MULTIPLE VITAMIN TAB PO SCH (10:38)
[2017-12-11] MEDS: LEVOFLOXACIN 250 MG TAB PO SCH ×2 (10:38→10:41)
[2017-12-11 11:28] VITALS: BP 112/66
[2017-12-11] MEDS: HYDROcodone-ACET 5/325MG TAB PO PRN ×2 (13:05→21:29)
[2017-12-11] MEDS: predniSONE 20 MG TAB PO SCH (16:11)
[2017-12-11 16:44] VITALS: BP 137/83
[2017-12-11] MEDS ORDERED: MORPHINE SULFATE 4 MG/ML SYR/VIAL IV PRN (20:00)
[2017-12-11] MEDS: PRO-STAT 64 30ML PO SCH (21:28)
[2017-12-11 23:05] VITALS: BP 147/77
[2017-12-11] MEDS: TEMAZEPAM 15 MG CAP PO PRN (23:16)
[2017-12-12] MEDS: IPRATROPIUM BROM 0.5 MG/2.5ML INH SOL NEB SCH ×4 (02:00→14:00)
[2017-12-12] MEDS: ALBUTEROL SULF 2.5 MG/0.5ML(0.5%) NEB SOLN NEB SCH ×4 (02:00→14:00)
[2017-12-12 05:20] VITALS: BP 108/68
[2017-12-12] MEDS: SODIUM CHLOR 0.9% PF (SALINE LOCK) 10ML VIAL IV SCH ×2 (05:31→16:34)
[2017-12-12] MEDS: SODIUM CHLORIDE 0.9% 1,000 ML IV SCH (05:31)
[2017-12-12 08:00] VITALS: BP 127/70
[2017-12-12 08:00] LABS: Basophils # (auto) 0 uL; Basophils % (auto) 0.4 % (0.0-2.0); Eosinophils # (auto) 0 uL; Lymphocytes # (auto) 1.8 uL; Nucleated Red Blood Cells % 0.1 %
[2017-12-12 08:02] LABS: Hematocrit 35.1 % (36.0-46.0); Hemoglobin 11.5 g/dL (12.2-16.2); Lymphocytes % (auto) 20.3 % (10.0-50.0); Mean Corpuscular Hemoglobin 25.1 pg (28.0-32.0); Mean Corpuscular Hgb Conc. 32.6 g/dL (32.0-36.0); Mean Corpuscular Volume 76.8 fL (80.0-100.0); Monocytes # (auto) 0.5 uL; Monocytes % (auto) 5.3 % (0.0-12.0); Neutrophils # (auto) 6.6 uL; Platelet Count (auto) 551 10^3/uL (140-450); Red Blood Cells 4.57 10^6/uL (4.0-5.20); Red Cell Distribution Width 19.8 % (11.8-14.3); White Blood Cell 8.9 10^3/uL (4.4-10.8)
[2017-12-12 08:12] LABS: INR 2.7 (0.9-1.15); Partial Thromboplastin Time 38.1 sec (22.64-33.71); Prothrombin Time 29.7 sec (9.37-12.3)
[2017-12-12 08:13] LABS: Albumin 2.2 g/dL (3.4-5.0); BUN/Creatinine Ratio 30.1; Bilirubin, Total 0.3 mg/dL (0.2-1.0); Calcium 8.4 mg/dL (8.5-10.1); Potassium 4.5 mmol/L (3.5-5.1); Total Protein 9.5 g/dL (6.4-8.2)
[2017-12-12 09:00] VITALS: BP 151/78
[2017-12-12] MEDS: BOOST PLUS 8 ounce PO SCH ×2 (09:12→16:34)
[2017-12-12] MEDS: FAMOTIDINE 20 MG TAB PO SCH (10:16)
[2017-12-12] MEDS: LEVOFLOXACIN 250 MG TAB PO SCH (10:16)
[2017-12-12] MEDS: predniSONE 20 MG TAB PO SCH (10:16)
[2017-12-12] MEDS: MULTIPLE VITAMIN TAB PO SCH (10:16)
[2017-12-12] MEDS: PRO-STAT 64 30ML PO SCH (10:17)
[2017-12-12 13:00] VITALS: BP 127/70
[2017-12-12] MEDS ORDERED: WARF5TAB71 PO (13:07)
[2017-12-12] MEDS ORDERED: SACC250C PO (13:07)
[2017-12-12] MEDS ORDERED: LEVO750T2 PO (13:07)
[2017-12-12 13:15] VITALS: BP 150/78
[2017-12-12] MEDS ORDERED: WARFARIN SODIUM 2.5 MG TAB PO ONE (17:00)
== END 2017-12-12 16:00 | disposition home or self-care (01) | DRG 720 ==
LOC: EDBD 13:01 → ER 13:01 → TELE 13:02 → TELE-WESTW 23:18 → WEST WING 12-12 01:59
PROVIDERS: ADMIT Internal Medicine; ATTEND Internal Medicine
DX: A41.9 Sepsis, unspecified organism (principal); N17.0 Acute kidney failure with tubular necrosis; J18.1 Lobar pneumonia, unspecified organism; E44.0 Moderate protein-calorie malnutrition; J44.0 Chronic obstructive pulmonary disease with (acute) lower respiratory infection; N18.3 Chronic kidney disease, stage 3 (moderate); J45.901 Unspecified asthma with (acute) exacerbation; J44.1 Chronic obstructive pulmonary disease with (acute) exacerbation; I12.9 Hypertensive chronic kidney disease with stage 1 through stage 4 chronic kidney disease, or unspecified chronic kidney disease; D47.3 Essential (hemorrhagic) thrombocythemia; T38.0X5A Adverse effect of glucocorticoids and synthetic analogues, initial encounter; F15.10 Other stimulant abuse, uncomplicated; F11.10 Opioid abuse, uncomplicated; E87.1 Hypo-osmolality and hyponatremia; D63.8 Anemia in other chronic diseases classified elsewhere; E83.51 Hypocalcemia; Z83.3 Family history of diabetes mellitus; Z85.6 Personal history of leukemia; Z86.718 Personal history of other venous thrombosis and embolism; Z90.49 Acquired absence of other specified parts of digestive tract; Z90.89 Acquired absence of other organs; Z88.8 Allergy status to other drugs, medicaments and biological substances; Z68.27 Body mass index [BMI] 27.0-27.9, adult; Z79.01 Long term (current) use of anticoagulants; Z71.51 Drug abuse counseling and surveillance of drug abuser
CPT/HCPCS: 36415; 71045; 71046; 80048; 80053; 80061; 80307; 81001; 83540; 83550; 83605; 83735; 84484; 85025; 85379; 85610; 85730; 87040; 87070; 87086; 87205; 87400; 93005; 94640; 94761; 96365; 96366; 96375; 97163

== ENCOUNTER 2018-06-29 15:52 | Inpatient (IN) | payer MEDICAID ==
[~2018-06-29] VITALS: Ht 160 cm; Wt 98.0 kg
[~2018-06-29 15:52] MED LIST changes: +LEVO750T2 PO; +SACC250C PO; -WARF2.5T39 PO; +WARF5TAB71 PO
[2018-06-29 18:54] LABS: Basophils # (auto) 0.1 uL; Eosinophils # (auto) 0.3 uL; Lymphocytes # (auto) 2.2 uL; Mean Corpuscular Hemoglobin 26.5 pg (28.0-32.0); Nucleated Red Blood Cells % 0.1 %; White Blood Cell 7.8 10^3/uL (4.4-10.8)
[2018-06-29 18:57] LABS: Basophils % (auto) 1.2 % (0.0-2.0); Eosinophils % (auto) 3.6 % (0.0-7.0); Hematocrit 37.2 % (36.0-46.0); Lymphocytes % (auto) 28.5 % (10.0-50.0); Mean Corpuscular Hgb Conc. 32.4 g/dL (32.0-36.0); Monocytes # (auto) 0.7 uL; Monocytes % (auto) 8.4 % (0.0-12.0); Neutrophils # (auto) 4.6 uL; Neutrophils % (auto) 58.3 % (37.0-80.0); Platelet Count (auto) 449 10^3/uL (140-450); Red Blood Cells 4.54 10^6/uL (4.0-5.20)
[2018-06-29 19:14] LABS: Albumin 2.8 g/dL (3.4-5.0); BUN/Creatinine Ratio 12.5; Calcium 8.2 mg/dL (8.5-10.1); Potassium 3.7 mmol/L (3.5-5.1)
[2018-06-29 19:17] LABS: Bilirubin, Total 0.3 mg/dL (0.2-1.0); Total Protein 9.3 g/dL (6.4-8.2)
[2018-06-29] MEDS ORDERED: SODIUM CHLORIDE 0.9% 1,000 ML IVB ONE ×2 (19:28→19:33)
[2018-06-29] MEDS ORDERED: MORPHINE SULF INJ 2 MG/ML SYRINGE 1ML IV ONE (19:30)
[2018-06-29] MEDS ORDERED: cefTRIAXone 1GM/10ml IVPUSH 10 ML IV ONE (19:45)
[2018-06-29 20:25] LABS: Partial Thromboplastin Time 26.9 sec (23.78-33.04); Prothrombin Time 10.7 sec (9.27-12.13)
[2018-06-29 20:29] LABS: Lactic Acid w/Reflex 2.4 mmol/L (0.4-2.0)
[2018-06-29] MEDS ORDERED: ACETAMINOPHEN 500 MG TAB PO PRN (21:00)
[2018-06-29] MEDS ORDERED: ALBUTEROL SULF 2.5 MG/0.5ML(0.5%) NEB SOLN NEB PRN (21:00)
[2018-06-29] MEDS ORDERED: TEMAZEPAM 15 MG CAP PO PRN (21:00)
[2018-06-29] MEDS: PROMETHAZINE HCL 25 MG/ML 1ML IV PRN (21:12)
[2018-06-30] VITALS (8 sets, daily range): BP systolic 105–116; BP diastolic 61–75
[2018-06-30] MEDS: MORPHINE SULF INJ 2 MG/ML SYRINGE 1ML IV PRN (00:28)
[2018-06-30] MEDS: PROMETHAZINE HCL 25 MG/ML 1ML IV PRN (00:29)
[2018-06-30] MEDS: traMADol HCL 50 MG TAB PO PRN ×2 (01:53→14:09)
[2018-06-30 07:29] LABS: Basophils # (auto) 0.1 uL; Eosinophils # (auto) 0.3 uL; Eosinophils % (auto) 6.1 % (0.0-7.0); Lymphocytes # (auto) 1.9 uL; Lymphocytes % (auto) 37.1 % (10.0-50.0); Monocytes % (auto) 12.9 % (0.0-12.0)
[2018-06-30 07:32] LABS: Hematocrit 35.3 % (36.0-46.0); Hemoglobin 11.3 g/dL (12.2-16.2); Mean Corpuscular Hemoglobin 26.4 pg (28.0-32.0); Mean Corpuscular Hgb Conc. 32.1 g/dL (32.0-36.0); Mean Corpuscular Volume 82.4 fL (80.0-100.0); Monocytes # (auto) 0.7 uL; Neutrophils # (auto) 2.2 uL; Neutrophils % (auto) 42.9 % (37.0-80.0); Nucleated Red Blood Cells % 0.1 %; Platelet Count (auto) 413 10^3/uL (140-450); Red Blood Cells 4.29 10^6/uL (4.0-5.20); Red Cell Distribution Width 19.3 % (11.8-14.3); White Blood Cell 5.1 10^3/uL (4.4-10.8)
[2018-06-30 07:40] LABS: Partial Thromboplastin Time 26.8 sec (23.78-33.04); Prothrombin Time 10.7 sec (9.27-12.13)
[2018-06-30 07:53] LABS: BUN/Creatinine Ratio 12.7; Calcium 7.9 mg/dL (8.5-10.1); Potassium 3.3 mmol/L (3.5-5.1)
[2018-06-30] MEDS ORDERED: IPRATROPIUM BROM 0.5 MG/2.5ML INH SOL NEB PRN (13:00)
[2018-06-30] MEDS ORDERED: ALBUTEROL SULF 2.5 MG/0.5ML(0.5%) NEB SOLN NEB PRN (13:00)
[2018-06-30] MEDS ORDERED: POTASSIUM CHL 20 Meq TABLET PO ONE (13:00)
[2018-06-30] MEDS: SODIUM CHLORIDE 0.9% 1,000 ML IV SCH (14:01)
[2018-06-30 14:07] LABS: Urine Bacteria NONE SEEN /hpf (None Seen); Urine Blood Negative /uL (Negative); Urine Mucus FEW (None Seen); Urine Specific Gravity 1.012 (1.001-1.035); Urine WBC 7 /hpf (0 - 5)
[2018-06-30] MEDS ORDERED: IOHEXOL 350 MG/ML 100ML IJ ONE (14:08)
[2018-06-30 14:37] LABS: Alcohol, Urine < 3.0 mg/dL (0-5); Amphetamine Screen, Urine POSITIVE (NEGATIVE); Barbiturate Scree,Urine NEGATIVE (NEGATIVE); Benzodiazephine Screen, Urine NEGATIVE (NEGATIVE); Cannabinoid Screen, Urine POSITIVE (NEGATIVE); Cocaine Screen, Urine NEGATIVE (NEGATIVE); Opiate Scree,Urine POSITIVE (NEGATIVE); Phencyclidine Screen, Urine NEGATIVE (NEGATIVE)
[2018-06-30] MEDS ORDERED: WARFARIN SODIUM 5 MG TAB PO SCH (17:00)
[2018-07-01] MEDS: MORPHINE SULF INJ 2 MG/ML SYRINGE 1ML IV PRN ×4 (04:03→20:13)
[2018-07-01 05:00] VITALS: BP 132/73
[2018-07-01] MEDS: SODIUM CHLORIDE 0.9% 1,000 ML IV SCH (05:40)
[2018-07-01 08:00] VITALS: BP 115/77
[2018-07-01] MEDS: PROMETHAZINE HCL 25 MG/ML 1ML IV PRN (08:35)
[2018-07-01 09:00] VITALS: BP 115/77
[2018-07-01] MEDS: PANTOPRAZOLE 40 MG TAB PO SCH ×2 (09:45→09:55)
[2018-07-01 13:00] VITALS: BP 120/76
[2018-07-01 17:00] VITALS: BP 120/66
[2018-07-01] MEDS: traMADol HCL 50 MG TAB PO PRN (18:35)
[2018-07-01 19:06] LABS: BUN/Creatinine Ratio 13.5; Calcium 8.1 mg/dL (8.5-10.1); Potassium 4.5 mmol/L (3.5-5.1)
[2018-07-01 19:07] LABS: Basophils # (auto) 0.1 uL; Basophils % (auto) 1.2 % (0.0-2.0); Eosinophils # (auto) 0.3 uL; Hemoglobin 11.8 g/dL (12.2-16.2); Mean Corpuscular Hemoglobin 26.8 pg (28.0-32.0); Mean Corpuscular Hgb Conc. 32.5 g/dL (32.0-36.0); Monocytes # (auto) 0.5 uL; Red Cell Distribution Width 19.1 % (11.8-14.3); White Blood Cell 5.5 10^3/uL (4.4-10.8)
[2018-07-01 19:09] LABS: Eosinophils % (auto) 5.6 % (0.0-7.0); Hematocrit 36.2 % (36.0-46.0); Lymphocytes # (auto) 1.8 uL; Lymphocytes % (auto) 32.9 % (10.0-50.0); Mean Corpuscular Volume 82.6 fL (80.0-100.0); Monocytes % (auto) 9.7 % (0.0-12.0); Neutrophils # (auto) 2.8 uL; Neutrophils % (auto) 50.6 % (37.0-80.0); Nucleated Red Blood Cells % 0.1 %; Platelet Count (auto) 441 10^3/uL (140-450); Red Blood Cells 4.38 10^6/uL (4.0-5.20)
[2018-07-01 22:00] VITALS: BP 130/73
[2018-07-02 05:00] VITALS: BP 132/80
[2018-07-02] MEDS: MORPHINE SULF INJ 2 MG/ML SYRINGE 1ML IV PRN ×2 (05:45→09:53)
[2018-07-02 08:33] VITALS: BP 109/60
[2018-07-02] MEDS: PANTOPRAZOLE 40 MG TAB PO SCH (09:54)
[2018-07-02 12:16] VITALS: BP 114/65
== END 2018-07-02 15:25 | disposition home or self-care (01) | DRG 813 ==
LOC: ER 15:52 → OVERFLOW 15:53 → EAST 23:57
PROVIDERS: ADMIT Nurse Practitioner Family; ATTEND Internal Medicine
DX: L76.32 Postprocedural hematoma of skin and subcutaneous tissue following other procedure (principal); E44.1 Mild protein-calorie malnutrition; L03.311 Cellulitis of abdominal wall; E87.6 Hypokalemia; E11.9 Type 2 diabetes mellitus without complications; E66.9 Obesity, unspecified; F12.10 Cannabis abuse, uncomplicated; F15.10 Other stimulant abuse, uncomplicated; I10 Essential (primary) hypertension; J44.9 Chronic obstructive pulmonary disease, unspecified; K57.30 Diverticulosis of large intestine without perforation or abscess without bleeding; Y84.8 Other medical procedures as the cause of abnormal reaction of the patient, or of later complication, without mention of misadventure at the time of the procedure; Z79.51 Long term (current) use of inhaled steroids; Z79.01 Long term (current) use of anticoagulants; Z80.3 Family history of malignant neoplasm of breast; Z80.7 Family history of other malignant neoplasms of lymphoid, hematopoietic and related tissues; Z82.49 Family history of ischemic heart disease and other diseases of the circulatory system; Z83.3 Family history of diabetes mellitus; Z86.711 Personal history of pulmonary embolism; Z86.718 Personal history of other venous thrombosis and embolism; Z90.49 Acquired absence of other specified parts of digestive tract; Z88.0 Allergy status to penicillin; Z88.8 Allergy status to other drugs, medicaments and biological substances; Z88.5 Allergy status to narcotic agent; Z68.38 Body mass index [BMI] 38.0-38.9, adult
CPT/HCPCS: 36415; 71045; 71275; 74176; 80048; 80053; 80307; 81001; 83605; 83735; 85025; 85610; 85730; 87040; 93970; 94761; 96361; 96374; 96375; J0696

== ENCOUNTER 2019-06-13 07:45 | Emergency (ER) | payer MEDICAID ==
[~2019-06-13] VITALS: Ht 160 cm; Wt 61.2 kg
[~2019-06-13 07:45] MED LIST changes: -LEVO750T2 PO; -PROM25TA5 PO; -SACC250C PO; -TIOTCAP INH; -WARF5TAB71 PO
[2019-06-13 08:08] VITALS: BP 105/60
[2019-06-13] MEDS ORDERED: KETOROLAC TROMETH 60MG/2ML VIAL IM ONE (08:15)
[2019-06-13] MEDS ORDERED: METHOCARBAMOL 500 MG TAB PO ONE (08:15)
[2019-06-13] MEDS ORDERED: HYDROcodone-ACET 10/325MG TAB PO ONE (09:15)
== END 2019-06-13 09:08 | disposition home or self-care (01) ==
LOC: EDBD 07:45 → ER 07:45
DX: M54.5 Low back pain (principal); J44.9 Chronic obstructive pulmonary disease, unspecified; E11.9 Type 2 diabetes mellitus without complications; I10 Essential (primary) hypertension; Z90.49 Acquired absence of other specified parts of digestive tract; Z90.89 Acquired absence of other organs; Z88.0 Allergy status to penicillin; Z88.8 Allergy status to other drugs, medicaments and biological substances; Z79.51 Long term (current) use of inhaled steroids; Z79.899 Other long term (current) drug therapy
CPT/HCPCS: 93005; 96372; 99283; J1885

== ENCOUNTER 2020-01-14 22:24 | Emergency (ER) | payer MEDICAID ==
[~2020-01-14] VITALS: Ht 160 cm; Wt 72.6 kg
[2020-01-14] MEDS ORDERED: SODIUM CHLORIDE 0.9% 1,000 ML IV ONE (23:00)
[2020-01-14 23:05] LABS: Basophils # (auto) 0.1 10 ^3/uL (0-0.2); Basophils % (auto) 0.7 % (0.0-2.0); Eosinophils # (auto) 0.1 10 ^3/uL (0-0.8); Eosinophils % (auto) 1.2 % (0.0-7.0); Hematocrit 41.8 % (36.0-46.0); Lymphocytes # (auto) 2.1 10 ^3/uL (0.4-5.4); Lymphocytes % (auto) 28.3 % (10.0-50.0); Mean Corpuscular Hemoglobin 29.4 pg (28.0-32.0); Mean Corpuscular Hgb Conc. 33.6 g/dL (32.0-36.0); Mean Corpuscular Volume 87.5 fL (80.0-100.0); Monocytes # (auto) 0.4 10 ^3/uL (0-1.3); Monocytes % (auto) 5.8 % (0.0-12.0); Neutrophils # (auto) 4.7 10 ^3/uL (1.6-8.6); Platelet Count (auto) 244 10^3/uL (140-450); Red Blood Cells 4.77 10^6/uL (4.0-5.20); Red Cell Distribution Width 13.9 % (11.8-14.3); White Blood Cell 7.3 10^3/uL (4.4-10.8)
[2020-01-14 23:22] LABS: Albumin 3.2 g/dL (3.4-5.0); Anion Gap 7 (5-15); Blood Urea Nitrogen 9 mg/dL (7-18); Calcium 8.7 mg/dL (8.5-10.1); Carbon Dioxide 23 mmol/L (21-32); Chloride 96 mmol/L (98-107); Potassium 4.1 mmol/L (3.5-5.1); Sodium 126 mmol/L (136-145)
[2020-01-14 23:24] LABS: Aspartate Aminotransferase 20 U/L (15-37); GFR African American 70 mL/min; GFR Non-African American 57 mL/min
[2020-01-14 23:30] LABS: Alanine Aminotransferase 24 U/L (13-56); Alkaline Phosphatase 154 U/L (45-117); Bilirubin, Total 0.4 mg/dL (0.2-1.0); Total Protein 8.4 g/dL (6.4-8.2)
[2020-01-14 23:38] LABS: BUN/Creatinine Ratio 8.7; Glucose 515 mg/dL (74-106)
[2020-01-15] MEDS ORDERED: SODIUM CHLORIDE 0.9% 1,000 ML IV ONE
[2020-01-15] MEDS ORDERED: InsuLIN REG 1unit/0.01ml Soln (100units/ml) IV ONE
[2020-01-15 01:27] LABS: Urine Bacteria NONE SEEN /hpf (None Seen); Urine Blood Negative /uL (Negative); Urine Mucus FEW (None Seen); Urine Specific Gravity 1.022 (1.001-1.035); Urine WBC <1 /hpf (0 - 5)
[2020-01-15 02:01] VITALS: BP 107/65
== END 2020-01-15 02:03 | disposition home or self-care (01) ==
LOC: ER 22:24
DX: E11.65 Type 2 diabetes mellitus with hyperglycemia (principal); F41.8 Other specified anxiety disorders; J44.9 Chronic obstructive pulmonary disease, unspecified; I10 Essential (primary) hypertension; Z90.49 Acquired absence of other specified parts of digestive tract; Z90.89 Acquired absence of other organs; Z88.0 Allergy status to penicillin; Z88.5 Allergy status to narcotic agent; Z88.8 Allergy status to other drugs, medicaments and biological substances; Z79.891 Long term (current) use of opiate analgesic; Z79.899 Other long term (current) drug therapy
CPT/HCPCS: 36415; 80053; 81001; 82010; 82962; 84484; 85025; 93005; 96361; 96374; 99284; J1815; J7030

== ENCOUNTER 2021-01-03 10:38 | Emergency (ER) | payer MEDICAID ==
[~2021-01-03] VITALS: Ht 160 cm; Wt 63.5 kg
[2021-01-03 11:02] LABS: Urine WBC None Seen /hpf (0 - 5)
[2021-01-03 11:12] LABS: Urine Bacteria FEW /hpf (None Seen); Urine Blood 3+ /uL (Negative); Urine Specific Gravity 1.013 (1.001-1.035)
[2021-01-03 11:25] LABS: Basophils # (auto) 0.1 10 ^3/uL (0-0.2); Basophils % (auto) 1.3 % (0.0-2.0); Eosinophils # (auto) 0.1 10 ^3/uL (0-0.8); Eosinophils % (auto) 0.8 % (0.0-7.0); Hematocrit 43.2 % (36.0-46.0); Hemoglobin 14.6 g/dL (12.2-16.2); Lymphocytes # (auto) 2.3 10 ^3/uL (0.4-5.4); Lymphocytes % (auto) 20.5 % (10.0-50.0); Mean Corpuscular Hemoglobin 29.2 pg (28.0-32.0); Mean Corpuscular Hgb Conc. 33.7 g/dL (32.0-36.0); Mean Corpuscular Volume 86.5 fL (80.0-100.0); Monocytes # (auto) 1.3 10 ^3/uL (0-1.3); Monocytes % (auto) 11.5 % (0.0-12.0); Neutrophils # (auto) 7.4 10 ^3/uL (1.6-8.6); Neutrophils % (auto) 65.9 % (37.0-80.0); Nucleated Red Blood Cells % 0.1 %; Platelet Count (auto) 333 10^3/uL (140-450); Red Blood Cells 4.99 10^6/uL (4.0-5.20); Red Cell Distribution Width 14.3 % (11.8-14.3); White Blood Cell 11.2 10^3/uL (4.4-10.8)
[2021-01-03 11:39] LABS: Albumin 3.2 g/dL (3.4-5.0); Anion Gap 6 (5-15); Blood Urea Nitrogen 10 mg/dL (7-18); Calcium 8.3 mg/dL (8.5-10.1); Carbon Dioxide 25 mmol/L (21-32); Chloride 102 mmol/L (98-107); Glucose 98 mg/dL (74-106); Potassium 4.4 mmol/L (3.5-5.1); Sodium 133 mmol/L (136-145)
[2021-01-03] MEDS ORDERED: SODIUM CHLORIDE 0.9% 1,000 ML IVB ONE (11:45)
[2021-01-03 11:59] LABS: Alanine Aminotransferase 28 U/L (13-56); Alkaline Phosphatase 139 U/L (45-117); Aspartate Aminotransferase 31 U/L (15-37); BUN/Creatinine Ratio 10.6; Bilirubin, Total 0.6 mg/dL (0.2-1.0); GFR African American 78 mL/min; GFR Non-African American 64 mL/min; Total Protein 9.2 g/dL (6.4-8.2)
[2021-01-03] MEDS ORDERED: MORPHINE SULF INJ 2 MG/ML SYRINGE 1ML IV ONE ×2 (12:00→21:45)
[2021-01-03] MEDS ORDERED: ONDANSETRON HCL 4 MG/2 ML VIAL IV ONE ×2 (12:00→21:45)
[2021-01-03] MEDS ORDERED: WARF10TA20 PO (12:20)
[2021-01-03 13:04] LABS: INR > 8.0 (0.9-1.15); Partial Thromboplastin Time 96.2 sec (23.0-31.2)
[2021-01-03] MEDS ORDERED: phytonadione 10 MG in SODIUM CHL 0.9% 50 ML IV ONE (13:30)
[2021-01-03] MEDS ORDERED: levoFLOXacin 500MG 100 ML IV ONE (13:30)
[2021-01-03] MEDS ORDERED: IOHEXOL 300 MG/ML 100ML BOTTLE IJ ONE (19:05)
[2021-01-03 22:35] VITALS: BP 140/77
== END 2021-01-03 23:33 | disposition home or self-care (01) ==
LOC: ER 10:38
DX: N13.30 Unspecified hydronephrosis (principal); R11.2 Nausea with vomiting, unspecified; Z79.01 Long term (current) use of anticoagulants; Z20.822 Contact with and (suspected) exposure to COVID-19
CPT/HCPCS: 36415; 71045; 74176; 74178; 80053; 81001; 83605; 84484; 85025; 85610; 85730; 87040; 87086; 87426; 93005; 96361; 96365; 96367; 96375; 96376; 99285; C9803; J1956; J2270; J2405; J3430; J7030; Q9967; U0003

== ENCOUNTER 2022-10-18 20:05 | Emergency (ER) | payer MEDICAID ==
[~2022-10-18] VITALS: Ht 160 cm; Wt 89.6 kg
[~2022-10-18 20:05] MED LIST changes: +WARF10TA20 PO
[2022-10-18 20:15] VITALS: BP 167/99
[2022-10-18 20:54] LABS: Basophils # (auto) 0.1 10 ^3/uL (0-0.2); Basophils % (auto) 0.7 % (0.0-2.0); Eosinophils # (auto) 0.4 10 ^3/uL (0-0.8); Eosinophils % (auto) 4.1 % (0.0-7.0); Hematocrit 45.3 % (36.0-46.0); Hemoglobin 15.1 g/dL (12.2-16.2); Lymphocytes # (auto) 2.5 10 ^3/uL (0.4-5.4); Lymphocytes % (auto) 27.8 % (10.0-50.0); Mean Corpuscular Hemoglobin 29.8 pg (28.0-32.0); Mean Corpuscular Hgb Conc. 33.3 g/dL (32.0-36.0); Mean Corpuscular Volume 89.7 fL (80.0-100.0); Monocytes # (auto) 0.5 10 ^3/uL (0-1.3); Monocytes % (auto) 5.8 % (0.0-12.0); Neutrophils # (auto) 5.5 10 ^3/uL (1.6-8.6); Neutrophils % (auto) 61.6 % (37.0-80.0); Nucleated Red Blood Cells % 0.1 %; Red Blood Cells 5.05 10^6/uL (4.0-5.20); Red Cell Distribution Width 13.5 % (11.8-14.3); White Blood Cell 8.8 10^3/uL (4.4-10.8)
[2022-10-18 21:11] LABS: Albumin 3.3 g/dL (3.4-5.0); Calcium 9.1 mg/dL (8.5-10.1); Potassium 4.3 mmol/L (3.5-5.1)
[2022-10-18 21:13] LABS: BUN/Creatinine Ratio 11.5
[2022-10-18 21:16] LABS: Bilirubin, Total 0.3 mg/dL (0.2-1.0); Total Protein 7.8 g/dL (6.4-8.2)
[2022-10-19] MEDS ORDERED: LORazepam 0.5 MG TAB PO ONE (03:15)
== END 2022-10-19 03:36 | disposition home or self-care (01) ==
LOC: ER 20:05
DX: F41.0 Panic disorder [episodic paroxysmal anxiety] (principal); E11.9 Type 2 diabetes mellitus without complications; J44.9 Chronic obstructive pulmonary disease, unspecified; K21.9 Gastro-esophageal reflux disease without esophagitis; E78.5 Hyperlipidemia, unspecified; Z90.49 Acquired absence of other specified parts of digestive tract; Z88.0 Allergy status to penicillin; Z88.8 Allergy status to other drugs, medicaments and biological substances
CPT/HCPCS: 36415; 80053; 83880; 84484; 85025; 93005

== ENCOUNTER 2024-10-30 14:24 | Emergency (ER) | payer MEDICARE, MEDICAID ==
[~2024-10-30] VITALS: Ht 160 cm; Wt 82.5 kg
[~2024-10-30 14:24] MED LIST changes: +WARF-115 PO; -WARF10TA20 PO
--- NOTE | 2024-10-30 15:04 | ED.PDOC ---
SOB-HPI HPI Comments HPI: Poor Historian. 64-year-old female presents to the emergency department for evaluation of one- week history of cough congestion and shortness of breath. Patient has history of COPD oxygen dependent 2 L nasal cannula at home. Patient states that she is not feeling well and having associated generalized body aches. She took some Tylenol prior to arrival. Denies any other acute symptoms. Patient states having some chest discomfort from coughing frequently. Initial Vital Signs: Temp : 98.6F BP: 157/101 HR: 129 RR: 18 SpO2: 87% on RA Past Medical History: Breast Cancer, Asthma, COPD, HTN, DM, GERD, HLD, PE Past Surgical History: , Tonsillectomy, Cholecystectomy Social History: Denies smoking, ETOH, or drug use. Allergies: Carisoprodol, Ceftriaxone, Oxycodone, Penicillins REVIEW OF SYSTEMS: CONSTITUTIONAL: Denies acute: fever, diaphoresis, chills, HEAD: Denies acute: headache, photophobia Eyes: Denies acute: Double vision, vision loss, eye pain, eye discharge. EARS: Denies acute: tinnitus, hearing loss, ear discharge, ear pain, THROAT: Denies acute: sore throat, swelling, difficulty swallowing , pain with swallowing, change in voice. NECK: Denies acute: neck pain, neck swelling, stiff neck. HEART: Denies acute : chest pain, palpitations, LUNGS: Denies acute: hemoptysis ABDOMEN: Denies acute: abdominal pain, Nausea, Vomiting, diarrhea, melena , hematemesis, hematochezia SKIN: Denies acute: rash, redness, lesions, itchiness. EXTREMITIES: Denies acute: calf pain, numbness, tingling, weakness, denies pain in extremity. Denies acute: Low back pain. Neuro: Denies acute: focal neurological deficit, motor or sensory focal neurological deficit, tremors, seizure like activity, confusion, dizziness, change in mental status, loss of bowel or bladder function, cauda equina like symptoms. : Denies acute: dysuria, hematuria, flank pain, increase in urinary frequency. PSYCH: Denies acute: hallucination, suicidal ideation, homicidal ideation. FEMALE: Denies acute: abnormal vaginal bleeding, foul odor, unusual discharge. PHYSICAL EXAM: General: no acute distress, awake and alert. Head: normocephalic, atraumatic. Neck: supple, trachea is midline, no swelling. Throat: Normal phonation. Eyes:, no erythema, no purulent discharge, no proptosis, no icterus. Heart: regular rate, regular rhythm, no significant murmur appreciated. Lungs: Gbws-um-chvkduwr respiratory distress, Able to speak in full sentences. Noted bilateral wheezing and rhonchi, no crackles. No stridors Abdomen: non tender to palpation, non distended, soft, no guarding, no rebound, + bowel sounds. Neuro: Awake, Alert, oriented to name, self, situation, follows commands GCS=15. Speech is normal. Skin: no petechia, no purpura, no cyanosis, non-pale, not jaundice. Lower extremities: --no - Pitting edema no deformity, no focal swelling, no calf TTP. Makes eye contact. moves all four extremities. Face: no apparent facial droop. Ambulating in the ED independently. Time Seen by MD: 14:41 Primary Care Provider: [id number] Reviewed notes: Nurses Notes, Allergies Information Source: Patient Past Medical History PAST MEDICAL HISTORY: Asthma, Cancer, COPD, DM, GERD, High Lipids, HTN, PE Surgical History: Cholecystectomy, , Tonsillectomy [employer] History: No Pertinent [employer]OR History Family History Family History: Reviewed,noncontributory to illness Social History Smoker: Non-Smoker Alcohol: Denies ETOH Use Drugs: Denies Drug Use Lives In: Home X-Ray, Labs, Meds, VS Vital Signs Date Time Temp Pulse Resp B/P (MAP) Pulse Ox O2 Delivery O2 Flow Rate FiO2 10/30/24 19:45 98.9 110 20 154/96 (115) 96 98.9 10/30/24 18:15 110 20 93 Nasal Cannula 2.0 10/30/24 18:15 98.9 110 20 144/84 (104) 96 98.9 10/30/24 18:11 98.4 10/30/24 17:15 99.4 118 20 154/96 (115) 95 99.4 10/30/24 15:13 26 92 Nasal Cannula* 2 28 10/30/24 15:11 122 10/30/24 14:55 98.6 129 18 157/101 (119) 87 Lab Test 10/30/24 18:06 10/30/24 16:52 10/30/24 15:09 Range/Units Influenza Type A Antigen Negative Negative Influenza Type B Antigen Negative Negative SARS-CoV-2 Antigen (Rapid) Negative NEGATIVE Troponin I High Sensitivity < 3 L < 3 L </=34 ng/L White Blood Count 19.1 H 4.4-10.8 10^3/uL Red Blood Count 5.37 H 4.0-5.20 10^6/uL Hemoglobin 16.3 H 12.2-16.2 g/dL Hematocrit 48.6 H 36.0-46.0 % Mean Corpuscular Volume 90.5 80.0-100.0 fL Mean Corpuscular Hemoglobin 30.4 28.0-32.0 pg Mean Corpuscular Hemoglobin Concent 33.6 32.0-36.0 g/dL Red Cell Distribution Width 13.5 11.8-14.3 % Platelet Count 340 140-450 10^3/uL Mean Platelet Volume 8.1 6.9-10.8 fL Neutrophils (%) (Auto) 82.2 H 37.0-80.0 % Lymphocytes (%) (Auto) 10.1 10.0-50.0 % Monocytes (%) (Auto) 5.5 0.0-12.0 % Eosinophils (%) (Auto) 1.7 0.0-7.0 % Basophils (%) (Auto) 0.5 0.0-2.0 % Neutrophils # (Auto) 15.7 H 1.6-8.6 10 ^3/uL Lymphocytes # (Auto) 1.9 0.4-5.4 10 ^3/uL Monocytes # (Auto) 1.1 0-1.3 10 ^3/uL Eosinophils # (Auto) 0.3 0-0.8 10 ^3/uL Basophils # (Auto) 0.1 0-0.2 10 ^3/uL Nucleated Red Blood Cells 0.0 % Sodium Level 135 L 136-145 mmol/L Potassium Level 3.9 3.5-5.1 mmol/L Chloride Level 102 98-107 mmol/L Carbon Dioxide Level 24 20-31 mmol/L Anion Gap 9 5-15 Blood Urea Nitrogen 8 L 9-23 mg/dL Creatinine 0.92 0.550-1.02 mg/dL Glomerular Filtration Rate Calc 69 >90 mL/min BUN/Creatinine Ratio 8.7 L 10.0-20.0 Serum Glucose 193 H 74-106 mg/dL Lactic Acid Level 1.4 0.4-2.0 mmol/L Calcium Level 9.9 8.7-10.4 mg/dL Total Bilirubin 1.0 0.2-1.0 mg/dL Aspartate Amino Transferase (AST) 17 13-40 U/L Alanine Aminotransferase (ALT) 15 7-40 U/L Alkaline Phosphatase 127 H 46-116 U/L B-Type Natriuretic Peptide 22.54 0-100 pg/mL Total Protein 8.3 H 5.7-8.2 g/dL Albumin 4.0 3.2-4.8 g/dL Current Medications Medications (Trade) Dose Ordered Sig/Harmony Route Start Time Stop Time Status Last Admin Albuterol (Ventolin Medneb) 2.5 mg ONCE ONCE NEB 10/30/24 15:00 10/30/24 15:01 DC 10/30/24 15:12 Ipratropium Holcomb (Atrovent Medneb) 1 mg ONCE ONCE NEB 10/30/24 15:00 10/30/24 15:01 CA 10/30/24 15:12 Methylprednisolone Sodium Succinate (Solu Medrol) 125 mg ONCE ONCE IV 10/30/24 15:00 10/30/24 15:01 DC 10/30/24 17:29 Acetaminophen (Tylenol Tablet) 650 mg ONCE ONCE PO 10/30/24 17:45 10/30/24 17:46 CA 10/30/24 18:11 Levofloxacin (Levaquin Tablet) 500 mg ONCE ONCE PO 10/30/24 18:00 10/30/24 18:01 CA 10/30/24 18:08 [place] [id number] Ph: [phone] DIAGNOSTIC IMAGING Diagnostic Imaging Report : [id number] Signed PATIENT: ANGELINA CELESTE ACCT: [id number] UNIT: [id number] : 1960 LOC: ER ROOM / BED: / AGE / SEX: 64 / F ADM STATUS: REG ER SERVICE [id number] ORDERING PHYSICIAN: RUBENS CORTEZ DO PROCEDURE(s): CXRP - CHEST PORTABLE REASON: sob ORDER NUMBER(s): [id number], ACCESSION NUMBER(s): [id number] EXAMINATION: AP portable chest radiograph CLINICAL HISTORY: sob COMPARISON: CHEST PORTABLE on DOS: 01/03/21 TECHNIQUE: Single AP upright view of the chest FINDINGS: Negative AP chest. No dominant consolidations. The costophrenic angles are clear. No sizable pleural effusions or pneumothorax identified. The cardiomediastinal silhouette appears within normal limits given technique. IMPRESSION: 1. Negative AP chest. 2. No significant change from 01/03/2021 HS:Y ATED BY: SONIA HOGAN Jr., DO DICTATED DATE/TIME: 10/30/241531 SIGNED BY: SONIA HOGAN Jr., DO SIGNED DATE/TIME: 10/30/241531 CC: Time of 1ST Reevaluation: 21:40 (At this time patient and family want to leave against medical advice. They are tired of waiting this long in the lobby. There are no beds available at this time in the main ER or upstairs. They said they going to go home and then go to [facility].) Reevaluation 1ST: Improved Patient Education/Counseling: Diagnosis, Treatment Family Education/Counseling: Diagnosis, Treatment Departure 1 Departure Time of Disposition: 16:44 Impression: Primary Impression: Hypoxemia Additional Impressions: Respiratory distress Cough COPD exacerbation Left against medical advice Disposition: ADMITTED INPATIENT Admit to: [facility] Condition: Guarded Additional Instructions: You are leaving against medical advice. Please seek medical attention HARIKA. Please return to the emergency department if you change your mind. Follow up with pulmonology and Cardiology HARIKA. Follow up with your PCP HARIKA. Discharged With: Self, Relative I personally scribed for RUBENS CORTEZ DO ([email or web address]) on 10/30/24 at 16:14. Electronically submitted by Tyler Kent ([email or web address]). I personally scribed for RUBENS CORTEZ DO ([email or web address]) on 10/30/24 at 18:48. Electronically submitted by Giovana Hsu ([email or web address]). I personally scribed for RUBENS CORTEZ DO ([email or web address]) on 10/30/24 at 19:12. Electronically submitted by Giovana Hsu ([email or web address]). RUBENS CORTEZ DO Oct 30, 2024 15:04
[2024-10-30] MEDS: IPRATROPIUM BROM 0.5 MG/2.5ML INH SOL NEB ONE (15:12)
[2024-10-30] MEDS: ALBUTEROL SULF 2.5 MG/0.5ML(0.5%) NEB SOLN NEB ONE (15:12)
[2024-10-30] MEDS ORDERED: levoFLOXacin 500MG 100 ML IV ONE (15:15)
--- NOTE | 2024-10-30 15:34 | DVH ---
EXAMINATION: AP portable chest radiograph CLINICAL HISTORY: sob COMPARISON: CHEST PORTABLE on DOS: 01/03/21 TECHNIQUE: Single AP upright view of the chest FINDINGS: Negative AP chest. No dominant consolidations. The costophrenic angles are clear. No sizable pleural effusions or pneumo thorax identified. The cardiomediastinal silhouette appears within normal limits given technique. IMPRESSION: 1. Negative AP chest. 2. No significant change from 01/03/2021 HS:Y
[2024-10-30 15:37] LABS: Basophils # (auto) 0.1 10 ^3/uL (0-0.2); Basophils % (auto) 0.5 % (0.0-2.0); Eosinophils # (auto) 0.3 10 ^3/uL (0-0.8); Eosinophils % (auto) 1.7 % (0.0-7.0); Hematocrit 48.6 % (36.0-46.0); Hemoglobin 16.3 g/dL (12.2-16.2); Lymphocytes # (auto) 1.9 10 ^3/uL (0.4-5.4); Lymphocytes % (auto) 10.1 % (10.0-50.0); Mean Corpuscular Hemoglobin 30.4 pg (28.0-32.0); Mean Corpuscular Hgb Conc. 33.6 g/dL (32.0-36.0); Mean Corpuscular Volume 90.5 fL (80.0-100.0); Monocytes # (auto) 1.1 10 ^3/uL (0-1.3); Monocytes % (auto) 5.5 % (0.0-12.0); Neutrophils # (auto) 15.7 10 ^3/uL (1.6-8.6); Neutrophils % (auto) 82.2 % (37.0-80.0); Platelet Count (auto) 340 10^3/uL (140-450); Red Blood Cells 5.37 10^6/uL (4.0-5.20); Red Cell Distribution Width 13.5 % (11.8-14.3); White Blood Cell 19.1 10^3/uL (4.4-10.8)
[2024-10-30 15:55] LABS: Alanine Aminotransferase 15 U/L (7-40); Anion Gap 9 (5-15); Aspartate Aminotransferase 17 U/L (13-40); BUN/Creatinine Ratio 8.7 (10.0-20.0); Calcium 9.9 mg/dL (8.7-10.4); Carbon Dioxide 24 mmol/L (20-31); Chloride 102 mmol/L (98-107); Potassium 3.9 mmol/L (3.5-5.1)
[2024-10-30 15:57] LABS: Alkaline Phosphatase 127 U/L (46-116); Blood Urea Nitrogen 8 mg/dL (9-23); Glucose 193 mg/dL (74-106); Sodium 135 mmol/L (136-145); Total Protein 8.3 g/dL (5.7-8.2)
[2024-10-30] MEDS: methylPREDNISolone SOD SUCC 125 MG/2 ML VL IV ONE (17:29)
[2024-10-30] MEDS: levoFLOXacin 500 MG TAB PO ONE (18:08)
[2024-10-30] MEDS: ACETAMINOPHEN 325 MG TAB PO ONE (18:11)
[2024-10-30 19:20] LABS: COVID19 ANTIGEN SOFIA FIA NEGATIVE (NEGATIVE)
[2024-10-30 19:21] LABS: Rapid Influenza A Negative (Negative); Rapid Influenza B Negative (Negative)
[2024-10-30 19:45] VITALS: TEMP 98.9
[2024-10-30] MEDS ORDERED: DEXTROSE (50%) 50ML SYRG IV PRN (21:30)
[2024-10-30] MEDS ORDERED: SODIUM CHLORIDE 0.9% 1,000 ML IV SCH (21:30)
[2024-10-30] MEDS ORDERED: DOCUSATE SOD 100 MG CAP PO PRN (21:30)
[2024-10-30] MEDS ORDERED: HYDROcodone-ACET 5/325MG TAB PO PRN (21:30)
[2024-10-30] MEDS ORDERED: ALBUTEROL SULF 2.5 MG/0.5ML(0.5%) NEB SOLN NEB PRN (21:30)
[2024-10-30] MEDS ORDERED: IPRATROPIUM BROM 0.5 MG/2.5ML INH SOL NEB PRN (21:30)
[2024-10-30] MEDS ORDERED: ACETAMINOPHEN 325 MG TAB PO PRN (21:30)
[2024-10-30] MEDS ORDERED: ONDANSETRON HCL 4 MG/2 ML VIAL IV PRN (21:30)
[2024-10-30] MEDS ORDERED: methylPREDNISolone SOD SUCC 40 MG/ML VL IV SCH (22:00)
[2024-10-30] MEDS ORDERED: FAMOTIDINE (10MG/ML) 2ML VL IV SCH (22:00)
[2024-10-30 23:06] VITALS: BP 144/84; PULSE 110; RESP 20; O2SAT 96
[2024-10-31] MEDS ORDERED: ACCU-CHEK COMFORT CURVE STRIP VI SCH
[2024-10-31] MEDS ORDERED: InsuLIN REG 1unit/0.01ml Soln (100units/ml) SC SCH
[2024-10-31] MEDS ORDERED: levoFLOXacin 500MG 100 ML IV SCH (10:00)
--- NOTE | 2024-11-01 15:23 | ECG ---
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
== END 2024-10-30 21:43 | disposition left against medical advice (07) ==
LOC: ER 14:24
DX: R09.02 Hypoxemia (principal); J44.1 Chronic obstructive pulmonary disease with (acute) exacerbation; R06.03 Acute respiratory distress; E11.9 Type 2 diabetes mellitus without complications; E78.5 Hyperlipidemia, unspecified; I10 Essential (primary) hypertension; K21.9 Gastro-esophageal reflux disease without esophagitis; Z85.3 Personal history of malignant neoplasm of breast; Z88.0 Allergy status to penicillin; Z88.1 Allergy status to other antibiotic agents; Z88.5 Allergy status to narcotic agent; Z90.49 Acquired absence of other specified parts of digestive tract; Z90.89 Acquired absence of other organs; Z99.81 Dependence on supplemental oxygen; Z20.822 Contact with and (suspected) exposure to COVID-19
CPT/HCPCS: 36415; 71045; 80053; 83605; 83880; 84484; 85025; 87426; 87804; 93005; 94640; 96374; 99285; J2919